=== PATIENT | female | born 1985 | race Hispanic/Latino ===

== ENCOUNTER 2017-09-16 19:45 | Emergency (ER) | payer MEDICAID ==
[2017-09-16] MEDS ORDERED: ONDANSETRON HCL 4 MG/2 ML VIAL ONE (21:12)
[2017-09-16] MEDS ORDERED: MORPHINE SULFATE 2 MG/ML 1ML SYG ONE (21:13)
[2017-09-17] MEDS ORDERED: KETOROLAC TROMETHAMINE 30MG/ML ONE (00:02)
[2017-09-17] MEDS ORDERED: METOCLOPRAMIDE 10 MG TABLET ONE (00:02)
[2017-09-17] MEDS ORDERED: METOPROLOL TARTRATE 25 MG TAB ONE (00:02)
== END 2017-09-17 00:53 | disposition home or self-care (01) ==
LOC: EDH 19:45
DX: R51 Headache (principal); I10 Essential (primary) hypertension; Z88.8 Allergy status to other drugs, medicaments and biological substances; Z98.890 Other specified postprocedural states; Z72.0 Tobacco use
CPT/HCPCS: 70486; 87804 ×2; 96374; 96375 ×2; 99285; J1885; J2405

== ENCOUNTER 2017-09-17 05:54 | Emergency (ER) | payer MEDICAID | END 2017-09-17 07:58 | disposition home or self-care (01) | LOC: EDH 05:54 | DX: G44.209 Tension-type headache, unspecified, not intractable (principal); R03.0 Elevated blood-pressure reading, without diagnosis of hypertension; Z72.0 Tobacco use; Z88.8 Allergy status to other drugs, medicaments and biological substances; Z98.890 Other specified postprocedural states | CPT/HCPCS: 99283; J1885 ==